=== PATIENT | female | born 1960 | race Hispanic/Latino ===

== ENCOUNTER 2019-07-05 17:54 | Emergency (ER) | payer OTHER ==
[~2019-07-05] VITALS: Ht 162.6 cm; Wt 95.4 kg
[2019-07-05] MEDS ORDERED: SODIUM CHLORIDE 0.9% 1000ML 1,000 ML IV STA (18:09)
[2019-07-05] MEDS ORDERED: METFORMIN HCL500 MG PO (18:11)
[2019-07-05] MEDS ORDERED: METOPROLOL SUCC50 MG PO (18:11)
[2019-07-05] MEDS ORDERED: ONDANSETRON HCL INJ 2MG/ML 2ML 2 MG/ML VIAL IV NR (18:15)
[2019-07-05] MEDS ORDERED: FAMOTIDINE 20 MG/2 ML VIAL IV ONE ×2 (18:15→18:32)
[2019-07-05] MEDS ORDERED: KETOROLAC TROMETHAMINE 30 MG/ML VIAL IV ONE (18:15)
[2019-07-05] MEDS ORDERED: KETOROLAC TROMETHAMINE 30 MG/ML VIAL ONE (18:31)
[2019-07-05] MEDS ORDERED: ONDANSETRON HCL INJ 2MG/ML 2ML 2 MG/ML VIAL ONE (18:31)
[2019-07-05] MEDS ORDERED: SODIUM CHLORIDE 0.9% 1000ML 1,000 ML ONE (18:32)
--- NOTE | 2019-07-05 19:27 | Diagnostic Imaging Report ---
EXAM: CT Abdomen and Pelvis WITHOUT contrast INDICATION: left flank pain, look for kidneystone COMPARISON: None. TECHNIQUE: Abdomen and pelvis were scanned utilizing a multidetector helical scanner from the lung base to the pubic symphysis without administration of IV contrast. Absence of intravenous contrast decreases sensitivity for detection of focal lesions and vascular pathology. Coronal and sagittal reformations were obtained. Routine protocol was performed. IV CONTRAST: None ORAL CONTRAST: Water COMPLICATIONS: None RADIATION DOSE: Total DLP: 778.23 mGy-cm Estimated effective dose: (DLP x 0.015 x size factor) mSv CTDIvol has been reviewed. It is below the limits set by the Radiation Protocol Committee (RPC). FINDINGS: LINES and TUBES: None. LOWER THORAX: Unremarkable HEPATOBILIARY: No biliary ductal dilation. GALLBLADDER: No radio-opaque stones or sludge. No wall thickening. SPLEEN: No splenomegaly. PANCREAS: There is fatty infiltration of the pancreas. ADRENALS: No adrenal nodules KIDNEYS/URETERS: No hydronephrosis. No cystic or solid mass lesions. No stones. GI TRACT: No abnormal distention, wall thickening, or evidence of bowel obstruction. There are diverticula within the colon without evidence of diverticulitis. Appendix is normal. PELVIC ORGANS/BLADDER: Bladder is unremarkable. There is a 2 mm calculus seen at the prostatic urethra (series 2, image 86) LYMPH NODES: No lymphadenopathy. VESSELS: Unremarkable. PERITONEUM / RETROPERITONEUM: No free air or fluid. BONES: Unremarkable. SOFT TISSUES: Unremarkable. IMPRESSION: 2 mm calculus seen at the prostatic urethra Signed by: Severo Mahan MD on 07/05/2019 7:23 PM
== END 2019-07-05 20:05 | disposition home or self-care (01) ==
LOC: FSED 17:54
DX: R10.32 Left lower quadrant pain (principal); R10.12 Left upper quadrant pain; R11.0 Nausea; N20.1 Calculus of ureter
CPT/HCPCS: 74176; 80053; 81003; 85025; 96374; 96375; 99284; J1885; J2405; J7030

== ENCOUNTER 2023-02-04 09:18 | Emergency (ER) | payer BC, OTHER ==
[~2023-02-04] VITALS: Ht 162.6 cm; Wt 90.7 kg
[~2023-02-04 09:18] MED LIST: METFORMIN HCL500 MG PO; METOPROLOL SUCC50 MG PO
[2023-02-04] MEDS ORDERED: MUCINEX DM ER1 EAC1 PO (11:05)
[2023-02-04] MEDS ORDERED: CLARITIN10 MG PO (11:05)
[2023-02-04] MEDS ORDERED: BENZONATATE100 MG PO (11:05)
[2023-02-04] MEDS ORDERED: NAPROXEN375 MG PEG (11:05)
[2023-02-04] MEDS ORDERED: FLONASE ALLERG9.9 ML INH (11:05)
[2023-02-04 11:10] VITALS: O2SAT 98
== END 2023-02-04 11:26 | disposition home or self-care (01) ==
LOC: FSED 09:25
DX: R05.9 Cough, unspecified (principal); J30.9 Allergic rhinitis, unspecified; J30.2 Other seasonal allergic rhinitis; R09.81 Nasal congestion; M79.18 Myalgia, other site; Z20.822 Contact with and (suspected) exposure to COVID-19
CPT/HCPCS: 0223U; 87400; 99283

== ENCOUNTER 2023-10-16 17:23 | Emergency (ER) | payer BC, OTHER ==
[~2023-10-16] VITALS: Ht 162.6 cm; Wt 95.3 kg
[~2023-10-16 17:23] MED LIST changes: +BENZONATATE100 MG PO; +CLARITIN10 MG PO; +FLONASE ALLERG9.9 ML INH; +MUCINEX DM ER1 EAC1 PO; +NAPROXEN375 MG PEG
[2023-10-16 17:47] VITALS: TEMP 98.4
[2023-10-16] MEDS: SODIUM CHLORIDE 0.9% 1000ML 1,000 ML IV ONE (20:19)
[2023-10-16] MEDS: KETOROLAC TROMETHAMINE 30 MG/ML VIAL IV STA (20:22)
[2023-10-16 21:13] VITALS: BP 170/82; PULSE 82; RESP 18; TEMP 98.6; O2SAT 97
== END 2023-10-16 21:13 | disposition home or self-care (01) ==
LOC: FSED 17:30
DX: R07.89 Other chest pain (principal); M79.641 Pain in right hand; M54.50 Low back pain, unspecified; V43.52XA Car driver injured in collision with other type car in traffic accident, initial encounter; Y92.488 Other paved roadways as the place of occurrence of the external cause; I10 Essential (primary) hypertension; E11.65 Type 2 diabetes mellitus with hyperglycemia; E78.5 Hyperlipidemia, unspecified; Z87.442 Personal history of urinary calculi
CPT/HCPCS: 71046; 72131; 73130; 80053; 85025; 99284; J1885; J7030

== ENCOUNTER 2024-04-23 09:00 | Emergency (ER) | payer BC, OTHER ==
[~2024-04-23] VITALS: Ht 162.6 cm; Wt 84.4 kg
[2024-04-23] MEDS: ACETAMINOPHEN 325 MG TAB PO ONE (10:04)
[2024-04-23] MEDS: CYCLOBENZAPRINE HCL 10 MG TAB PO ONE (10:04)
[2024-04-23] MEDS: KETOROLAC TROMETHAMINE 60 MG/2 ML VIAL IM ONE (10:05)
[2024-04-23 10:54] VITALS: PULSE 75; RESP 16; TEMP 97.4; O2SAT 98
== END 2024-04-23 10:57 | disposition home or self-care (01) ==
LOC: FSED 09:07
DX: M25.562 Pain in left knee (principal); S83.8X2A Sprain of other specified parts of left knee, initial encounter; M25.531 Pain in right wrist; M25.572 Pain in left ankle and joints of left foot; W01.0XXA Fall on same level from slipping, tripping and stumbling without subsequent striking against object, initial encounter; Y93.01 Activity, walking, marching and hiking; Y92.89 Other specified places as the place of occurrence of the external cause; I10 Essential (primary) hypertension; E11.65 Type 2 diabetes mellitus with hyperglycemia; E78.5 Hyperlipidemia, unspecified; Z87.442 Personal history of urinary calculi
CPT/HCPCS: 73110; 73130; 73564; 73610; 73630; 96372; 99284; J1885